=== PATIENT | male | born 1945 | race Caucasian/White ===

== ENCOUNTER → 2018-11-13 | Outpatient (REF) | payer MEDICARE, OTHER ==
[~2018-11-13] MED LIST: APAP OR; BABY ASPIRIN81 MG OR; BENADRYL 50MG C50 MG OR; CIPRO500 MG OR; CLONAZEPAM0.5 MG OR; CYCLOBENZAPR10 MG OR; DOXYCYCL HYC100 M3 OR; EPIPEN0.3 MG IM; HYDROCO OR; MEDDOSEPAK OR; OMEGA-31000 MG OR; PEPCID20 MG PO; PYRIDIUM200 MG OR; RAPAFLO8 MG OR; SIMVASTATIN80 MG OR; XYZAL5 MG OR; ZITHROMAX250 MG PO
[2018-11-13 09:57] LABS: HEMATOCRIT 46.4 % (39.0-50.0); HEMOGLOBIN 15.3 g/dl (14.0-18.0); IMMATURE GRANULOCYTES 0.2 % (0.0-5.0); MEAN CELL VOLUME 94.3 fL CALC (80.0-100.0); MEAN CORPUSCULAR HGB 31.1 pG CALC (26.0-32.0); NEUT# 2.71 thou/uL (1.82-7.42); RED BLOOD COUNT 4.92 mill/uL (4.70-6.10); RED CELL DISTRI WIDTH 13.3 % (11.5-15.5)
[2018-11-13 10:41] LABS: ALKALINE PHOSPHATASE 59 u/l (38-126); ANION GAP 12 (6-22 (CALC)); BILIRUBIN, TOTAL 0.8 mg/dL (0.0-1.4); BUN 25 mg/dL (8-23); BUN/CREATININE RATIO 28 (12-20 (CALC)); CALCULATED LDLCHOLESTEROL 97 mg/dL (62-129 (CALC)); CARBON DIOXIDE 27 mmol/l (22-30); CHLORIDE 107 mmol/l (95-108); CHOLESTEROL HDL RATIO 3.3 (<4.4 (CALC)); CREATININE 0.9 mg/dL (0.7-1.3); GFR > 60 ML/MIN (>=60 (CALC)); GFR FOR AFR.AMER. > 60 ML/MIN (>=60 (CALC)); HDL CHOLESTEROL 49 mg/dL (>=40); POTASSIUM 4.9 mmol/l (3.5-5.1); SGOT/AST 23 u/l (19-48); SODIUM 142 mmol/l (137-146); TOTAL CHOLESTEROL 160 mg/dl (0-199); TOTAL PROTEIN 6.5 g/dL (6.3-8.2); TOTAL TRIGLYCERIDES 68 mg/dl (30-149); VLDL CHOLESTROL 14 mg/dl (0-38 (CALC))
[2018-11-13 11:12] LABS: TSH, 3RD GENERATION 1.82 uIU/mL (0.47 - 4.68)
== END | disposition home or self-care (01) ==
LOC: LAB 09:01
PROVIDERS: ATTEND Internal Medicine Geriatric Medicine
DX: E78.5 Hyperlipidemia, unspecified (principal); Z12.5 Encounter for screening for malignant neoplasm of prostate